=== PATIENT | male | born 1960 | race Caucasian/White ===

== ENCOUNTER 2016-09-13 22:48 | Emergency (ER) | payer OTHER ==
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
[2016-09-13 22:55] VITALS: BP 170/102
[2016-09-13 23:28] LABS: CHLORIDE,CL 103 mmol/L (98-110); SODIUM,NA 138 mmol/L (136-146)
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
== END 2016-09-14 00:38 | disposition home or self-care (01) ==
LOC: MW.ED 22:48
DX: S30.0XXA Contusion of lower back and pelvis, initial encounter (principal); Y09 Assault by unspecified means
CPT/HCPCS: 36415; 71020; 71020-26; 80053; 81001; 85025; 99282; 99284

== ENCOUNTER 2016-12-28 18:52 | Observation (INO) | payer SELFPAY ==
[2016-12-28] MEDS ORDERED: Sodium Chloride 0.9% 10 ML Syringe FLUSH PRN (19:05)
[2016-12-28] MEDS ORDERED: Sodium Chloride 0.9% 2.5 ML Syringe FLUSH PRN (19:05)
--- NOTE | 2016-12-28 19:27 | EDM.PDOC ---
ED HPI GENERAL MEDICAL PROBLEM - General Chief Complaint: Neuro Symptoms/Deficits Stated Complaint: POSSIBLE STROKE Time Seen by Provider: 12/28/16 18:55 Source of Information: Reports: Patient, Family History Limitations: Reports: No Limitations - History of Present Illness INITIAL COMMENTS - FREE TEXT/NARRATIVE: History of present illness: [56-year-old male brought in by friends secondary to concerns of potential stroke. Friend indicates that he used to know patient quite well but he had been gone for a year he came back 2 weeks ago and the patient has not been the same as when he left. He indicates that over the last 2 weeks the patient has gotten progressively worse and he decided that he needed to bring him in tonight to be evaluated for potential stroke.] Review of systems: As per history of present illness and below otherwise all systems reviewed and negative. Past medical history: As per history of present illness and as reviewed below otherwise noncontributory. Surgical history: As per history of present illness and as reviewed below otherwise noncontributory. Social history: No reported history of drug or alcohol abuse. Family history: As per history of present illness and as reviewed below otherwise noncontributory. Physical exam: HEENT: Atraumatic, patient was some amount of left-sided facial droop and mild slurring of speech, pupils reactive, negative for conjunctival pallor or scleral icterus, mucous membranes moist, throat clear, neck supple, nontender, trachea midline. Lungs: Clear to auscultation, breath sounds equal bilaterally, chest nontender. Heart: S1S2, regular, negative for clicks, rubs, or JVD. Abdomen: Soft, nondistended, nontender. Negative for masses or hepatosplenomegaly. Negative for costovertebral tenderness. Pelvis: Stable nontender. Genitourinary: Deferred. Rectal: Deferred. Extremities: Atraumatic, negative for cords or calf pain. Neurovascular unremarkable. Neuro: Awake, alert, oriented. Cranial nerves II through XII unremarkable. Cerebellum unremarkable. Motor and sensory unremarkable throughout. Exam nonfocal. Patient's neuro assessment is globally benign save the left-sided facial droop as noted. Patient able to move all extremities with equal strength and range of motion, EOMs fully intact. Patient has the [place] smell of alcohol about him at this time which could be contributing to the slurring of his speech in addition to left-sided facial droop. Patient's friend indicates that he has had this facial droop in the past but not this bad. During patient's stay near there were no changes in baseline neurological status of note his EtOH level was 256. Consulting radiology called at [address] for acute intracranial changes. Diagnostics: [CT of head, CBC, CMP, EtOH, PTT, INR, troponin, TSH, EKG] Therapeutics: [IV saline lock] Impression: [#1 left-sided facial droop #2 alcohol intoxication] Plan: [Admit for observation] Definitive disposition and diagnosis as appropriate pending reevaluation and review of above. - Related Data Allergies Allergy/AdvReac Type Severity Reaction Status Date / Time No Known Allergies Allergy Verified 09/13/16 22:53 Home Meds: Home Meds . [No Known Home Meds] 09/13/16 [History] Past Medical History - Past Health History Medical/Surgical History: Denies Medical/Surgical History HEENT History: Reports: None Cardiovascular History: Reports: None Respiratory History: Reports: None Gastrointestinal History: Reports: None Genitourinary History: Reports: None Musculoskeletal History: Reports: None Neurological History: Reports: None Psychiatric History: Reports: None Endocrine/Metabolic History: Reports: None Hematologic History: Reports: None Dermatologic History: Reports: None - Infectious Disease History Infectious Disease History: Reports: None Social & Family History - Family History Family Medical History: Noncontributory - Tobacco Use Smoking Status *Q: Current Every Day Smoker Years of Tobacco use: 40 Packs/Tins Daily: 1 - Recreational Drug Use Recreational Drug Use: No ED ROS GENERAL - Review of Systems Review Of Systems: See Below (History of present illness) ED EXAM, NEURO - Physical Exam Exam: See Below (See history of present illness) Course - Vital Signs Last Recorded V/S: Last Vital Signs Temp 36.7 C 12/28/16 19:10 Pulse 94 12/28/16 19:25 Resp 20 12/28/16 19:25 BP 153/89 H 12/28/16 19:25 Pulse Ox 94 L 12/28/16 19:25 - Orders/Labs/Meds Orders: Active Orders 24 hr Category Date Time Status Bedrest [RC] ASDIRECTED Care 12/28/16 19:05 Active Blood Glucose Check, Bedside [RC] STAT Care 12/28/16 19:05 Active Cardiac Monitoring [RC] . DIRECTED Care 12/28/16 19:05 Active EKG Documentation Completion [RC] STAT Care 12/28/16 19:05 Active Height and Weight [RC] UPON Care 12/28/16 19:05 Active Initiate Acute Stroke Protocol [RC] STAT Care 12/28/16 19:05 Active NIH Stroke Scale [RC] ASDIRECTED Care 12/28/16 19:05 Active Nursing Bedside Swallow Screen [RC] ASDIRECTED Care 12/28/16 19:05 Active Oxygen Therapy [RC] ASDIRECTED Care 12/28/16 19:05 Active Stroke Education, General [RC] Click to Edit Care 12/28/16 19:05 Active Vital Signs [RC] Q15M Care 12/28/16 19:05 Active Head wo Cont [CT] Stat Exams 12/28/16 19:05 Taken Sodium Chloride 0.9% [Saline Flush] Med 12/28/16 19:05 Active 10 ml FLUSH ASDIRECTED PRN Sodium Chloride 0.9% [Saline Flush] Med 12/28/16 19:05 Active 2.5 ml FLUSH ASDIRECTED PRN Peripheral IV Insertion Adult [OM.PC] Stat Oth 12/28/16 19:05 Ordered Peripheral IV Insertion Adult [OM.PC] Stat Oth 12/28/16 19:05 Ordered Resuscitation Status Stat Resus Stat 12/28/16 19:05 Ordered Medication Orders Sodium Chloride (Saline Flush) 10 ml FLUSH ASDIRECTED PRN PRN Reason: Keep Vein Open Sodium Chloride (Saline Flush) 2.5 ml FLUSH ASDIRECTED PRN PRN Reason: Keep Vein Open Labs: Laboratory Tests 12/28/16 12/28/16 12/28/16 Range/Units 19:12 19:15 19:15 WBC 5.37 (4.0-11.0) K/uL RBC 4.95 (4.50-5.90) M/uL Hgb 15.3 (13.0-17.0) g/dL Hct 45.5 (38.0-50.0) % MCV 91.9 (80.0-98.0) fL MCH 30.9 (27.0-32.0) pg MCHC 33.6 (31.0-37.0) g/dL RDW Std Deviation 52.5 (28.0-62.0) fl RDW Coeff of Andrea 16 H (11.0-15.0) % Plt Count 159 (150-400) K/uL MPV 9.60 (7.40-12.00) fL Neut % (Auto) 38.9 L (48.0-80.0) % Lymph % (Auto) 46.7 H (16.0-40.0) % [place] % (Auto) 13.0 (0.0-15.0) % Eos % (Auto) 0.7 (0.0-7.0) % Baso % (Auto) 0.7 (0.0-1.5) % Neut # (Auto) 2.1 (1.4-5.7) K/uL Lymph # (Auto) 2.5 H (0.6-2.4) K/uL [place] # (Auto) 0.7 (0.0-0.8) K/uL Eos # (Auto) 0.0 (0.0-0.7) K/uL Baso # (Auto) 0.0 (0.0-0.1) K/uL Nucleated RBC % 0.0 /100WBC Nucleated RBCs # 0 K/uL INR 0.89 (0.86-1.11) APTT 25.7 (18.6-31.3) SEC Sodium (136-146) mmol/L Potassium (3.5-5.1) mmol/L Chloride (98-110) mmol/L Carbon Dioxide (21-31) mmol/L BUN (6.0-23.0) mg/dL Creatinine (0.6-1.5) mg/dL Est Cr Clr Drug Dosing Estimated GFR (MDRD) ml/min Glucose (60-110) mg/dL POC Glucose 107 (60-110) mg/dL Calcium (8.8-10.8) mg/dL Total Bilirubin (0.1-1.5) mg/dL AST (5-40) IU/L ALT (8-54) IU/L Alkaline Phosphatase (40-150) Troponin I (0.0-0.29) NG/ML Total Protein (6.0-8.0) g/dL Albumin (3.5-5.0) g/dL Globulin (2.0-3.5) g/dL Albumin/Globulin Ratio (1.3-2.8) TSH 3rd Generation (0.47-5.0) uIU/mL Ethyl Alcohol mg/dL 12/28/16 12/28/16 12/28/16 Range/Units 19:15 19:15 19:15 WBC (4.0-11.0) K/uL RBC (4.50-5.90) M/uL Hgb (13.0-17.0) g/dL Hct (38.0-50.0) % MCV (80.0-98.0) fL MCH (27.0-32.0) pg MCHC (31.0-37.0) g/dL RDW Std Deviation (28.0-62.0) fl RDW Coeff of Andrea (11.0-15.0) % Plt Count (150-400) K/uL MPV (7.40-12.00) fL Neut % (Auto) (48.0-80.0) % Lymph % (Auto) (16.0-40.0) % [place] % (Auto) (0.0-15.0) % Eos % (Auto) (0.0-7.0) % Baso % (Auto) (0.0-1.5) % Neut # (Auto) (1.4-5.7) K/uL Lymph # (Auto) (0.6-2.4) K/uL [place] # (Auto) (0.0-0.8) K/uL Eos # (Auto) (0.0-0.7) K/uL Baso # (Auto) (0.0-0.1) K/uL Nucleated RBC % /100WBC Nucleated RBCs # K/uL INR (0.86-1.11) APTT (18.6-31.3) SEC Sodium 144 (136-146) mmol/L Potassium 4.2 (3.5-5.1) mmol/L Chloride 109 (98-110) mmol/L Carbon Dioxide 25 (21-31) mmol/L BUN 10 (6.0-23.0) mg/dL Creatinine 0.9 (0.6-1.5) mg/dL Est Cr Clr Drug Dosing TNP Estimated GFR (MDRD) > 60.0 ml/min Glucose 108 (60-110) mg/dL POC Glucose (60-110) mg/dL Calcium 9.2 (8.8-10.8) mg/dL Total Bilirubin 0.3 (0.1-1.5) mg/dL AST 30 (5-40) IU/L ALT 44 (8-54) IU/L Alkaline Phosphatase 68 (40-150) Troponin I < 0.10 (0.0-0.29) NG/ML Total Protein 7.0 (6.0-8.0) g/dL Albumin 4.0 (3.5-5.0) g/dL Globulin 3.0 (2.0-3.5) g/dL Albumin/Globulin Ratio 1.3 (1.3-2.8) TSH 3rd Generation 0.52 (0.47-5.0) uIU/mL Ethyl Alcohol 258.2 mg/dL Meds: Medications Generic Name Dose Route Start Last Admin Trade Name Freq PRN Reason Stop Dose Admin Sodium Chloride 10 ml 12/28/16 19:05 Saline Flush FLUSH ASDIRECTED PRN Keep Vein Open Sodium Chloride 2.5 ml 12/28/16 19:05 Saline Flush FLUSH ASDIRECTED PRN Keep Vein Open Departure - Departure Time of Disposition: 20:23 Disposition: Refer to Observation Condition: Good Clinical Impression: Neurological abnormality - Discharge Information Referrals: PCP,None [Primary Care Provider] - Forms: ED Department Discharge
[2016-12-28 19:50] LABS: CHLORIDE,CL 109 mmol/L (98-110); SODIUM,NA 144 mmol/L (136-146)
[2016-12-28] MEDS ORDERED: MVI, Adult with Vitamin K 10 ML, Thiamine 100 MG, Folic Acid 1 MG in Sodium Chloride 0.... IV ONE ×4 (20:33)
[2016-12-28] MEDS ORDERED: LORazepam 2 MG/ML MDV IVPUSH PRN (22:43)
[2016-12-28] MEDS: Nicotine 14 MG/24 Hr Patch TRDERM SCH (23:05)
[2016-12-28] MEDS: Enoxaparin 40 MG/0.4 ML Syringe SUBCUT SCH (23:05)
[2016-12-29] MEDS ORDERED: Sodium Chloride 0.9% 10 ML Syringe FLUSH PRN (01:09)
[2016-12-29] MEDS ORDERED: Sodium Chloride 0.9% 2.5 ML Syringe FLUSH PRN (01:09)
[2016-12-29 05:16] LABS: CHLORIDE,CL 113 mmol/L (98-110); SODIUM,NA 144 mmol/L (136-146)
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
[2016-12-29] MEDS: Nicotine 14 MG/24 Hr Patch TRDERM SCH (08:49)
[2016-12-29] MEDS: Thiamine 100 MG Tab PO SCH (08:53)
[2016-12-29] MEDS: Folic Acid 1 MG Tab PO SCH (09:42)
[2016-12-29] MEDS ORDERED: LORazepam 1 MG Tab PO SCH (10:30)
[2016-12-29] MEDS: oxyCODONE 5 MG Tab PO PRN ×2 (13:13→20:29)
--- NOTE | 2016-12-29 16:38 | CT ---
EXAM DATE: 12/28/16 PATIENT'S AGE: 56 Patient: LIUS HOLM Facility: [place], [place] Site . Site : 1960 Study: CT Head STROKE PROTOCOL [id number] 7:15:42 PM Ordering Physician: Sylvia Dinero Final Report: INDICATION: ? STROKE LIKE SYMPTOMS TECHNIQUE: CT Head without contrast. COMPARISON: None. FINDINGS: There is no sign of intracranial hemorrhage or mass effect. Diffuse cerebral atrophy. Nonspecific low-attenuation along the periventricular white matter, most likely related to chronic microvascular disease. Remote lacunar infarct within the left basal ganglia. The norwood-white differentiation is preserved. No abnormal intra-axial or extra-axial fluid collection. No acute disease of the visualized paranasal sinuses and mastoid air cells. Postsurgical changes along the orbits bilaterally. Remote leftward deviated nasal bone and nasal septal fractures. No scalp hematoma/laceration. IMPRESSION: No acute intracranial process. Dictated by: Kameron Kessler MD @ 12/28/2016 19:23:29 (Electronic Signature) Report Signed by Proxy. [facility]
--- NOTE | 2016-12-29 16:50 | MR ---
EXAMINATION: MR of the head without contrast. TECHNIQUE: Multiplanar and multisequence imaging of the head without intravenous contrast. Diffusion weighted sequences were performed. HISTORY: Neurologic assessment. Comparison: CT dated 12/28/2016. FINDINGS: The cerebral hemispheres and deep nuclei are without hemorrhage, mass, edema or atrophy. Mild T2 FLAI R hyperintensities in the white matter likely small areas of chronic ischemia. No evidence for restri cted diffusion. There is likely an old tiny left basal ganglia lacunar infarct. There is a small area of cortical encephalomalacia with underlying white matter edema within the left temporal lobe. No extraaxial collections or hemorrhage. The ventricular system is of normal size and configuration without hydrocephalus. The brainstem and cerebellum are without hemorrhage, mass, edema, gliosis or atrophy. The carotid basilar artery flow voids are intact. There is a small amount of fluid within the mastoid air cells bilaterally. No internal auditory canal or cerebellopontine angle masses. The paranasal sinuses are clear. There is moderate rightward simón ation of the nasal septum. The craniocervical junction is unremarkable. IMPRESSION: 1. Probable old left cortical infarct with underlying white matter gliosis. 2. Mild periventricular small vessel ischemic changes. 3. Mild fluid within the mastoid air cells bilaterally.
[2016-12-29] MEDS ORDERED: Alum Hydrox/Mag Hydrox/Simeth 15 ML, Lidocaine 2% 5 ML PO ONE ×2 (22:14)
[2016-12-29] MEDS: Pantoprazole 40 MG Tab.CR PO SCH (22:58)
[2016-12-29] MEDS: Enoxaparin 40 MG/0.4 ML Syringe SUBCUT SCH (23:00)
[2016-12-30] MEDS: Pantoprazole 40 MG Tab.CR PO SCH (06:36)
[2016-12-30 08:01] VITALS: BP 169/111
[2016-12-30] MEDS: Folic Acid 1 MG Tab PO SCH (08:01)
[2016-12-30] MEDS: Thiamine 100 MG Tab PO SCH (08:01)
[2016-12-30] MEDS: Nicotine 14 MG/24 Hr Patch TRDERM SCH (08:01)
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
[2016-12-30] MEDS ORDERED: amLODIPine 5 MG Tab PO SCH (09:00)
== END 2016-12-30 10:40 | disposition home or self-care (01) ==
LOC: MW.ED 18:52 → MW.MS 20:36
PROVIDERS: ADMIT Internal Medicine; ATTEND Internal Medicine
DX: R29.818 Other symptoms and signs involving the nervous system (principal); F10.129 Alcohol abuse with intoxication, unspecified; F17.210 Nicotine dependence, cigarettes, uncomplicated; D69.6 Thrombocytopenia, unspecified; I10 Essential (primary) hypertension; Z98.890 Other specified postprocedural states
CPT/HCPCS: 36415; 70450; 70551; 80048; 80053; 82962; 84443; 84484; 85025; 85610; 85730; 93005; 96374; 99285; A9270; G0480; J1650; J3411; J7040; 96365; 96366; 96372; 99283; G0378

== ENCOUNTER 2017-04-10 21:38 | Emergency (ER) | payer BC, OTHER ==
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
[2017-04-10 22:15] LABS: CHLORIDE,CL 108 mmol/L (98-110); SODIUM,NA 141 mmol/L (136-146)
[2017-04-10 23:10] VITALS: BP 135/92
--- NOTE | 2017-04-11 15:45 | CR ---
EXAM DATE: 04/10/17 PATIENT'S AGE: 56 Patient: LUIS HOLM Facility: [place], [place] Site . Site : 1960 Study: XRay Chest [id number] 10:18:07 PM Ordering Physician: Sylvia Dinero Final Report: Indication: Alcohol abuse, transferred to inpatient treatment facility Technique: Chest 1 view. Comparison: None Findings: Cardiovascular and mediastinum: Heart size and vasculature are normal in caliber and appearance. Mediastinum is within normal limits. Lungs and pleural space: Lungs are clear. No sign of infiltrate or mass. No sign of pleural effusion. No pneumothorax. Bones and soft tissues: No significant findings. Impression: No sign of acute disease. Dictated by Layne Johns MD @ Apr 10 2017 10:43PM (Electronic Signature) Report Signed by Proxy. [facility]
== END 2017-04-10 22:57 ==
LOC: MW.ED 21:38
DX: F10.10 Alcohol abuse, uncomplicated (principal); F17.210 Nicotine dependence, cigarettes, uncomplicated
CPT/HCPCS: 36415; 71010; 80053; 80305; 85025; 85610; 99284; G0480; 93005; 99283

== ENCOUNTER 2018-11-20 06:25 | Emergency (ER) | payer BC ==
--- NOTE | 2018-11-20 07:02 | CT ---
HISTORY: Left-sided facial numbness. TECHNIQUE: CT brain without contrast. COMPARISON: None. FINDINGS: No acute intracranial hemorrhage. No extra-axial collection. No mass effect or midline shift. Mild brain volume loss with proportional enlargement of the CSF spaces. Cisterns are patent. Porter-white differentiation is maintained. Calvarium is intact. Postoperative changes in the periorbital region bilaterally with plates and screws. Paranasal sinuses and mastoid air cells are clear. IMPRESSION: No acute intracranial abnormality. Please note that all CT scans at this facility use dose modulation, iterative reconstruction, and/or weight-based dosing when appropriate to reduce radiation dose to as low as reasonably achievable. Dictated by Rik Hummel MD @ Nov 20 2018 6:59AM Signed by Dr. Rik Hummel @ Nov 20 2018 6:59AM
[2018-11-20 07:04] LABS: BLOOD UREA NITROGEN,BUN 17 mg/dL (7.0-18.0); CARBON DIOXIDE,CO2 22.8 mmol/L (21.0-32.0); CHLORIDE,CL 106 mmol/L (98-107); GLUCOSE RANDOM 94 mg/dL (74-106); POTASSIUM,K 4.1 mmol/L (3.5-5.1); SODIUM,NA 140 mmol/L (136-148)
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
--- NOTE | 2018-11-20 07:37 | CR ---
HISTORY: Facial numbness. CVA. TECHNIQUE: Portable frontal view of the chest. COMPARISON: None. FINDINGS: Findings apical lordotic projection. No airspace consolidation. No pleural effusion or pneumothorax. Pulmonary vasculature and cardiomediastinal silhouette are within normal limits for technique. IMPRESSION: No acute abnormality. Dictated by Rik Hummel MD @ Nov 20 2018 7:35AM Signed by Dr. Rik uHmmel @ Nov 20 2018 7:36AM
[2018-11-20 07:51] VITALS: BP 141/87; PULSE 76
== END 2018-11-20 07:49 | disposition home or self-care (01) ==
LOC: MW.ED 06:25
DX: F10.129 Alcohol abuse with intoxication, unspecified (principal); I10 Essential (primary) hypertension; F17.210 Nicotine dependence, cigarettes, uncomplicated; Y90.6 Blood alcohol level of 120-199 mg/100 ml
CPT/HCPCS: 70450; 71045; 80053; 84484; 85025; 85610; 93005; 99284; G0480